=== PATIENT | male | born 1995 | race Two or more races ===

== ENCOUNTER 2017-09-25 16:01 | Emergency (ER) | payer BC ==
[~2017-09-25] VITALS: Ht 172.7 cm; Wt 86.8 kg
[2017-09-25 16:03] VITALS: BP 148/84
[2017-09-25] MEDS ORDERED: ALBUTEROL SULFATE 2.5 MG/3 ML NPPB SCH (16:30)
[2017-09-25] MEDS ORDERED: ALBUTEROL SULFATE 2.5 MG/3 ML ONE (17:14)
== END 2017-09-25 17:40 | disposition home or self-care (01) ==
LOC: ED 17:34
DX: J45.31 Mild persistent asthma with (acute) exacerbation (principal); J45.30 Mild persistent asthma, uncomplicated
CPT/HCPCS: 71020; 93005; 94640; 99284; J7512